=== PATIENT | female | born 1995 | race Caucasian/White ===

== ENCOUNTER 2017-12-18 00:15 | Emergency (ER) | payer OTHER ==
[~2017-12-18] VITALS: Ht 177.8 cm; Wt 70.0 kg
[2017-12-18 00:18] VITALS: BP 130/86; PULSE 109; RESP 16; TEMP 98; O2SAT 96
--- NOTE | 2017-12-18 01:44 | PD ---
HPI Chief Complaint: Laceration/Skin Injury Time Seen by Provider: 01:10 Travel History International Travel<30 days: No Contact w/Intl Traveler<30days: No Traveled to known affect area: No History of Present Illness HPI 22-year-old right-hand dominant white female presents emergency department for evaluation of a laceration to her right little finger which occurred prior to arrival at the [facility]. She states that she had cut it on a piece of metal on a railing. She denies any numbness, tingling or weakness. Pain is mild. Not up-to-date with immunizations [facility] Past Medical History Medical History: Denies Significant Hx Tetanus Vaccination: > 5 Years ?: Not LMP: Now Past Surgical History Surgical History: No Previous Surgery Social History Alcohol Use: Yes Tobacco Use: No Substance Use: No Allergies-Medications (Allergen,Severity, Reaction): Coded Allergies: No Known Allergies (Unverified , 12/18/17) Review of Systems General / Constitutional: No: Fever Eyes: No: Visual changes HENT: No: Headaches Cardiovascular: No: Chest Pain or Discomfort Respiratory: No: Shortness of Breath Gastrointestinal: No: Abdominal Pain Genitourinary: No: Dysuria Musculoskeletal: Positive: Pain, No: Arthralgias, Limited ROM, Edema Skin: No Rash Neurologic: No: Weakness Psychiatric: No: Depression Endocrine: No: Polydipsia Hematologic/Lymphatic: No: Easy Bruising Physical Exam Narrative GENERAL: This is a well-nourished, well-developed patient, in no apparent distress. SKIN: No rashes, ecchymoses or lesions. Warm and dry. HEAD: Atraumatic. Normocephalic. EYES: PERRL, EOMI, no discharge or injection. No scleral icterus. EARS: Clear NOSE: Nasal turbinates appear normal. THROAT: Mucosa pink and moist. Airway patent. NECK: Trachea midline. supple, moves head freely. LUNGS: Clear to auscultation. CV: Regular in rhythm. ABDOMEN: Soft nontender. EXT: No clubbing cyanosis or edema. The right little finger has a flap laceration to the distal phalanx measuring 2.5 cm. Laceration goes into the subcutaneous tissues of the volar pad. The pedicle was proximal. No tendon, nerve or joint injury. She is able to extend and flex it freely. Data Data Last Documented VS Vital Signs Date Time Temp Pulse Resp B/P (MAP) Pulse Ox O2 Delivery O2 Flow Rate FiO2 12/18/17 00:18 98.0 109 16 130/86 (101) 96 Orders Orders Tetanus/Diphtheria Tox Adult (Tetanus/Di (12/18/17 01:45) Ed Discharge Order (12/18/17 01:39) MDM Medical Decision Making Medical Screen Exam Complete: Yes Emergency Medical Condition: Yes Medical Record Reviewed: Yes Differential Diagnosis MDM: High Differential diagnoses: Fracture, sprain, strain, dislocation, contusion, neurovascular injury Narrative Course Patient's tetanus status updated. Her wound is closed with sutures. Procedures Procedure Narrative LACERATION LOCATION: Right little finger volar pad distal phalanx LENGTH: 2.5 cm NUMBER OF STITCHES/ANGELA: 6 REPAIR: The area of the laceration was prepped with Betadine and sterilely draped. The laceration was infiltrated with 1% lidocaine digital block. The wound was copiously irrigated and explored without evidence of foreign body, tendon injury or neurovascular injury. The wound was closed using 5-0 Prolene. This was a simple single layer repair. A sterile dressing was applied. The patient was advised to keep the dressing clean and dry. Patient tolerated the procedure well. Diagnosis Primary Impression: Laceration of right little finger Qualified Codes: S61.216A - Laceration without foreign body of right little finger without damage to nail, initial encounter Patient Instructions: General Instructions Additional Instructions: Rest. Elevation. Keep clean and dry. Daily wound care with soap, water, Neosporin. Tylenol and Advil for pain. Sutures out in 14 days. Return to the ER for any problems. Med/Other Pt SpecificInfo: Wound Care Disposition: DISCHARGE HOME Condition: Stable Ryan Lopez December 18, 2017 01:44
[2017-12-18] MEDS ORDERED: TETANUS/DIPHTHERIA TOXOID ADULT 0.5 ML VIAL IM ONE (01:45)
== END 2017-12-18 01:59 | disposition home or self-care (01) ==
LOC: NEPD 00:15
DX: S61.216A Laceration without foreign body of right little finger without damage to nail, initial encounter (principal); W26.8XXA Contact with other sharp object(s), not elsewhere classified, initial encounter; Y92.89 Other specified places as the place of occurrence of the external cause; Z23 Encounter for immunization
CPT/HCPCS: 12001; 90471; 90714